=== PATIENT | female | born 1990 | race Caucasian/White ===

== ENCOUNTER 2018-11-11 05:00 | Inpatient (IN) ==
[2018-11-11] MEDS ORDERED: CLINDAMYCIN 900 MG/D5W 900 MG/50 ML IVPB IV ONE (05:12)
[2018-11-11] MEDS ORDERED: BICITRA PO ONE (05:30)
[2018-11-11] MEDS: LR 1,000 ML IV SCH ×2 (06:00→06:45)
[2018-11-11 06:24] LABS: BASO# 0.01 X1000 (0.0-0.2); BASO% 0.1 % (0.0-0.8); EOS# 0.04 X1000 (0.0-0.7); EOS% 0.6 % (0.0-10.0); HEMOGLOBIN 9.5 g/dL (12.0-16.0); IMM GRAN# 0.02 X1000 (0.0-0.04); IMM GRAN% 0.3 % (0.0-0.5); LYMPH% 20.9 % (20.5-51.1); MCH 24.4 PG (27-31); MCHC 31.7 g/dL (33-37); MCV 76.9 FL (81-99); MONO# 0.55 X1000 (0.11-0.59); MONO% 7.7 % (1.7-9.3); MPV 11.6 FL (7.4-10.4); NEUT# 5.06 X1000 (1.4-6.5); NEUT% 70.4 % (42.2-75.2); PLT 188 X1000 (130-400); RDW 14.9 % (11.5-14.5); WBC 7.18 X1000 (4.8-10.8)
[2018-11-11 06:24] LABS: URINE SOURCE VOIDED
[2018-11-11 06:28] LABS: COLOR YELLOW
[2018-11-11 06:29] LABS: BILIRUBIN URINE NEGATIVE (NEGATIVE); GLUCOSE URINE NEGATIVE (NEGATIVE); KETONE URINE TRACE mg/dL (NEGATIVE)
[2018-11-11 06:36] LABS: BLOOD URINE NEGATIVE (NEGATIVE); LEUKOCYTES URINE TRACE (NEGATIVE); NITRITE URINE NEGATIVE (NEGATIVE); PH URINE 6.5; PROTEIN URINE 1+(30 mg/dL) mg/dL (NEGATIVE); UROBILINOGEN URINE 1 mg/dL
[2018-11-11 06:37] LABS: CLARITY SL. CLOUDY (CLEAR)
[2018-11-11 06:47] LABS: UR AMPHETAMINES QUAL NONE DETECTED (NONE DETECT); UR BARBITUATES QUAL NONE DETECTED (NONE DETECT); UR BENZODIAZEPIN QUAL NONE DETECTED (NONE DETECT); UR CANNABINOIDS QUAL NONE DETECTED (NONE DETECT); UR COCAINE QUAL NONE DETECTED (NONE DETECT); UR METHADONE QUAL NONE DETECTED (NONE DETECT); UR METHAMPHETAMINE QUAL NONE DETECTED (NONE DETECT); UR OPIATES QUAL NONE DETECTED (NONE DETECT); UR OXYCODONE QUAL NONE DETECTED (NONE DETECT); UR PCP QUAL NONE DETECTED (NONE DETECT); UR PROPOXYPHENE QUAL NONE DETECTED (NONE DETECT); UR TCA QUAL NONE DETECTED (NONE DETECT)
[2018-11-11] MEDS ORDERED: TORADOL ONE (06:53)
[2018-11-11] MEDS ORDERED: EPHEDRINE ONE (06:54)
[2018-11-11] MEDS ORDERED: FENTANYL ONE (07:05)
[2018-11-11] MEDS: TORADOL IV SCH ×3 (08:00→21:24)
[2018-11-11] MEDS ORDERED: HYDROXYZINE IM PRN (08:15)
[2018-11-11] MEDS ORDERED: M-M-R II VACCINE SUBQ ONE (08:15)
[2018-11-11] MEDS ORDERED: DEMEROL PO PRN ×2 (08:15)
[2018-11-11] MEDS ORDERED: PITOCIN 20 UNITS/NS 20 UNITS/1,000 ML IV.SOLN IV ONE (08:15)
[2018-11-11] MEDS ORDERED: DEMEROL IM PRN (08:15)
[2018-11-11] MEDS ORDERED: PHENERGAN IM PRN (08:15)
[2018-11-11] MEDS ORDERED: DULCOLAX PR PRN (08:15)
[2018-11-11] MEDS ORDERED: AMBIEN PO PRN (08:15)
[2018-11-11] MEDS ORDERED: BOOSTRIX VACCINE IM ONE (08:15)
[2018-11-11] MEDS ORDERED: NORCO-5 PO PRN (08:15)
[2018-11-11] MEDS ORDERED: PITOCIN IM PRN (08:15)
[2018-11-11] MEDS ORDERED: PITOCIN 10 UNITS/NS 1,000 ML IV SCH (08:15)
[2018-11-11] MEDS ORDERED: ATARAX PO PRN (08:15)
[2018-11-11] MEDS ORDERED: MORPHINE IV PRN (08:36)
[2018-11-11] MEDS ORDERED: MORPHINE PCA IV PRN (08:45)
[2018-11-11] MEDS ORDERED: NARCAN IV PRN (08:45)
[2018-11-11] MEDS ORDERED: BENADRYL IV PRN (08:45)
[2018-11-11] MEDS ORDERED: ZOFRAN IV PRN (08:45)
--- NOTE | 2018-11-11 13:06 | OPERATIVE NOTE ---
PROCEDURE DATE : 11/11/2018 PREOPERATIVE DIAGNOSIS: Intrauterine at 39 and 2/7 weeks with history of section. Also the patient desires permanent sterilization. POSTOPERATIVE DIAGNOSES: 1. Intrauterine at 39 and 2/7 weeks with history of section. Also the patient desires permanent sterilization. 2. Operative delivery of a male , 8 pounds 13 ounces, with Apgars of 9 and 10 at 0715 on 11/11/2018. PROCEDURES PERFORMED: 1. Repeat low transverse section. 2. Bilateral tubal ligation. SURGEON: Dr. Rodriguez MANAGER FILM: Dr. Grimes ANESTHESIA: Spinal, Dr. Benitez. FINDINGS: Normal appearing uterus, tubes and ovaries. COMPLICATIONS: None. ESTIMATED BLOOD LOSS: 700 mL. SPECIMENS REMOVED: Right and left fallopian tube segments. DRAINS: Pitt to straight drain. COUNTS: All counts were correct x3. INDICATION: The patient is a 28-year-old white female, G4, P2, with history of prior section at 39 and 2/7 weeks, who expresses desire for elective repeat section as well as tubal ligation. The patient was counseled about risks of surgery including bleeding, infection, bowel or bladder injury. The patient was counseled about the permanence of the procedure, failure rate of 2 to 4 per 1000, as well as the availability of reversible alternatives such as IUD, control pills, patches, etc. DESCRIPTION OF PROCEDURE: The patient was taken to Labor and Delivery OR, spinal anesthesia was employed. The patient was placed in supine position with roll under right hip. She was then prepped and draped in sterile fashion, placement of Pitt catheter. Adequate anesthesia was noted using Allis clamps on the skin. Then a Pfannenstiel skin incision was made in the lower abdomen using a scalpel. This was taken down sharply to the fascial layer. A small andrade was made in the rectus fascia. Fascial incision was extended bilaterally by curved Echeverria scissors. Then blunt and sharp dissection of the rectus fascia was accomplished in the superior and inferior aspects of the rectus fascia. Rectus muscles were then divided in the midline. The peritoneal layer was entered bluntly. The peritoneal incision was extended superiorly and inferiorly with care taken to avoid the bladder. The bladder reflection was difficult due to extensive scarring. A transverse incision was made on the lower uterine segment using the scalpel. This was then extended bilaterally by surgeon's fingers. Clear fluid was noted upon entry in the hysterotomy site, and then the head was elevated toward the hysterotomy incision and with gentle fundal pressure, the head was delivered atraumatically, bulb suctioned the nose and mouth, and the rest of the body was delivered traumatically with gentle fundal pressure. The cord was clamped twice and cut. was handed to the nursery nurse in attendance for delivery. Cord blood samples obtained at this time. The placenta was then manually extracted. The uterus was exteriorized. A wet lap was placed around the uterus. A dry lap was used to curet the uterine cavity of clots and debris. Then the uterine incision was closed with 0 chromic in running locking fashion x1. An area of oozing on the left corner was made hemostatic with [id number] stitches of 0 chromic. At this point in time, attention was turned to the fallopian tubes. The right fallopian tube was grasped near the isthmus. A small hole was made in the mesosalpinx using electrocautery, and 0 plain suture was then used to ligate a portion of the fallopian tube which was excised using Metzenbaum scissors and then handed off to be placed in a specimen container. Electrocautery was used to obtain hemostasis as well as touch the open ends of the ostia. The left fallopian tube was then gasped near the isthmus. A small hole was made in the mesosalpinx using electrocautery, and then 0 plain suture was used to ligate a portion of the fallopian tube. This ligated portion was then excised using Metzenbaum scissors and handed off to be placed in a specimen container. Electrocautery was then used to obtain hemostasis as well as to touch the open ends of the ostia. This was handed off to be placed in a specimen container as well. The posterior cul-de-sac was then irrigated copiously. Uterus was replaced back into the abdominal cavity. Pericolic gutters were cleansed using moist lap sponges. The peritoneal layer was then closed using 2-0 chromic in a running fashion x1. The fascial layer was then closed using 0 PDS in a running fashion x1. The subcutaneous layer was irrigated copiously. Electrocautery was used to obtain hemostasis and then 3-0 plain suture was used in a running fashion to reapproximate the subcutaneous tissue. Then the skin was reapproximated using katie. The patient tolerated the procedure well and was taken to the recovery room in stable condition. All counts were correct x3. cc: Amador Rodriguez III, MD
[2018-11-11] MEDS: MYLICON PO PRN (16:27)
[2018-11-11] MEDS: NS IV SCH (16:33)
[2018-11-11] MEDS: PITOCIN IV SCH (16:33)
[2018-11-11] MEDS: MYLICON PO SCH ×4 (16:35→21:26)
[2018-11-11] MEDS ORDERED: PERICOLACE PO SCH (21:00)
[2018-11-12] MEDS: PITOCIN IV SCH (00:47)
[2018-11-12] MEDS: NS IV SCH (00:47)
[2018-11-12] MEDS: TORADOL IV SCH (02:54)
--- NOTE | 2018-11-12 06:06 | OB/GYN PROGRESS NOTE ---
Progress Note OB - . OB Progress Note: Vital Signs - 24 hr 11/11/18 08:02 11/11/18 08:12 11/11/18 08:15 Temperature 96.0 F L 96 F L Pulse Rate 65 55 L 51 L Respiratory Rate 18 18 18 Blood Pressure 90/51 106/60 Blood Pressure [Right Arm] 90/51 125/63 O2 Sat by Pulse Oximetry 99 98 100 11/11/18 08:22 11/11/18 08:32 11/11/18 08:42 Temperature Pulse Rate 51 L 50 L 56 L Respiratory Rate 18 18 18 Blood Pressure Blood Pressure [Right Arm] 106/59 106/60 103/57 O2 Sat by Pulse Oximetry 100 100 100 11/11/18 08:52 11/11/18 09:02 11/11/18 12:00 Temperature 96.3 F L Pulse Rate 60 65 67 Respiratory Rate 18 18 18 Blood Pressure 100/61 108/58 Blood Pressure [Right Arm] 108/65 100/61 O2 Sat by Pulse Oximetry 100 100 100 11/11/18 14:45 11/11/18 19:38 11/11/18 23:40 Temperature 96.4 F L 97.2 F L Pulse Rate 60 70 65 Respiratory Rate 16 18 18 Blood Pressure 108/57 97/53 Blood Pressure [Right Arm] O2 Sat by Pulse Oximetry 99 100 98 11/12/18 03:03 Temperature 97.3 F L Pulse Rate 80 Respiratory Rate 20 Blood Pressure 114/69 Blood Pressure [Right Arm] O2 Sat by Pulse Oximetry 98 Laboratory Results - last 24 hr 11/11/18 11/11/18 11/11/18 05:10 05:10 06:00 WBC RBC Hgb Hct MCV MCH MCHC RDW Std Deviation Plt Count MPV Immature Gran % (Auto) Neut % (Auto) Lymph % (Auto) [place] % (Auto) Eos % (Auto) Baso % (Auto) Immature Gran # (Auto) Neut # (Auto) Lymph # (Auto) [place] # (Auto) Eos # (Auto) Baso # (Auto) Urine Source VOIDED Urine Color YELLOW Urine Clarity SL. CLOUDY A Urine pH 6.5 Ur Specific M[place]od 1.020 Urine Protein 1+(30 mg/dL) A Urine Ketones TRACE Urine Blood NEGATIVE Urine Nitrite NEGATIVE Urine Bilirubin NEGATIVE Urine Urobilinogen 1 Urine WBC TRACE A Urine Glucose NEGATIVE Urine Opiates Screen NONE DETECTED Ur Oxycodone Screen NONE DETECTED Urine Methadone Screen NONE DETECTED U Propoxyphene Qual NONE DETECTED Ur Barbituates Screen NONE DETECTED Ur Tricyclics Screen NONE DETECTED Ur Phencyclidine Scrn NONE DETECTED Ur Amphetamines Screen NONE DETECTED U Methamphetamines Scrn NONE DETECTED U Benzodiazepines Scrn NONE DETECTED Urine Cocaine Screen NONE DETECTED U Cannabinoids Screen NONE DETECTED RPR NON-REACTIVE Blood Type Antibody Screen 11/11/18 11/11/18 06:00 06:00 WBC 7.18 RBC 3.90 L Hgb 9.5 L Hct 30.0 L MCV 76.9 L MCH 24.4 L MCHC 31.7 L RDW Std Deviation 14.9 H Plt Count 188 MPV 11.6 H Immature Gran % (Auto) 0.3 Neut % (Auto) 70.4 Lymph % (Auto) 20.9 [place] % (Auto) 7.7 Eos % (Auto) 0.6 Baso % (Auto) 0.1 Immature Gran # (Auto) 0.02 Neut # (Auto) 5.06 Lymph # (Auto) 1.50 [place] # (Auto) 0.55 Eos # (Auto) 0.04 Baso # (Auto) 0.01 Urine Source Urine Color Urine Clarity Urine pH Ur Specific [place] Urine Protein Urine Ketones Urine Blood Urine Nitrite Urine Bilirubin Urine Urobilinogen Urine WBC Urine Glucose Urine Opiates Screen Ur Oxycodone Screen Urine Methadone Screen U Propoxyphene Qual Ur Barbituates Screen Ur Tricyclics Screen Ur Phencyclidine Scrn Ur Amphetamines Screen U Methamphetamines Scrn U Benzodiazepines Scrn Urine Cocaine Screen U Cannabinoids Screen RPR Blood Type A POSITIVE Antibody Screen NEGATIVE Pt doing well. pain well controlled with meds no N/V tolerating po +flatus no BM yet ambriz still in place about 1000cc in the bag O: VSSAF Gen: AAOx3 NAD CV: RRR no g/m/r Lungs: CTAB no w/r/r Abd: +BS soft emmie tender incision with bandage over it no strikethrough Ext: SCDs in place Labs CBC pending A: POD#1 s/p RLTCS/BTL obesity P: Cont postop mgmt D/C ambriz Regular diet Ambulate TID in halls Pt may shower
[2018-11-12] MEDS: MYLICON PO PRN (06:13)
[2018-11-12 06:41] LABS: BASO# 0.01 X1000 (0.0-0.2); BASO% 0.1 % (0.0-0.8); EOS# 0.05 X1000 (0.0-0.7); EOS% 0.6 % (0.0-10.0); HEMATOCRIT 26.4 % (37.0-47.0); HEMOGLOBIN 8.2 g/dL (12.0-16.0); IMM GRAN# 0.02 X1000 (0.0-0.04); IMM GRAN% 0.2 % (0.0-0.5); LYMPH# 1.03 X1000 (1.2-3.4); LYMPH% 11.8 % (20.5-51.1); MCH 24.3 PG (27-31); MCHC 31.1 g/dL (33-37); MCV 78.3 FL (81-99); MONO# 0.45 X1000 (0.11-0.59); MONO% 5.2 % (1.7-9.3); MPV 11.2 FL (7.4-10.4); NEUT# 7.16 X1000 (1.4-6.5); NEUT% 82.1 % (42.2-75.2); PLT 147 X1000 (130-400); RBC 3.37 XMIL (4.2-5.4); WBC 8.72 X1000 (4.8-10.8)
[2018-11-12] MEDS ORDERED: LR 1,000 ML IV SCH (08:15)
[2018-11-12] MEDS: MOTRIN PO PRN ×2 (10:21→18:04)
[2018-11-12] MEDS: MYLICON PO SCH ×4 (10:22→19:00)
[2018-11-12] MEDS: NORCO-10 PO PRN ×3 (10:22→20:39)
[2018-11-12] MEDS ORDERED: NEOSPORIN OINTMENT PACKET TOP PRN (11:44)
[2018-11-13] MEDS: MOTRIN PO PRN ×2 (08:17→17:45)
[2018-11-13] MEDS: MYLICON PO SCH ×4 (08:18→21:26)
[2018-11-13] MEDS: PERCOCET-10 PO PRN ×4 (08:21→21:26)
[2018-11-14] MEDS: MOTRIN PO PRN (03:48)
[2018-11-14] MEDS: PERCOCET-10 PO PRN (07:40)
[2018-11-14] MEDS: MYLICON PO SCH (07:40)
--- NOTE | 2018-11-14 07:51 | OB/GYN PROGRESS NOTE ---
Progress Note OB - . OB Progress Note: Vital Signs - 24 hr 11/13/18 07:55 11/13/18 11:55 11/13/18 16:20 Temperature 97.4 F L 96.5 F L 97.3 F L Pulse Rate 73 95 H 97 H Respiratory Rate 18 16 16 Blood Pressure 133/68 115/67 131/70 O2 Sat by Pulse Oximetry 100 99 100 11/13/18 20:00 11/13/18 21:30 11/14/18 03:50 Temperature 97.6 F 97.1 F L Pulse Rate 97 H 91 H 97 H Respiratory Rate 16 18 18 Blood Pressure 126/62 130/67 O2 Sat by Pulse Oximetry POD#3 s/p LTCD. Pt doing well and wants to go home. Decreased lochia. Michelle reg diet. Ambulating. Voiding w/o dif.No SOB, CP or leg pain. VSS AF Gen - pt in no apparent distress A&O x 3 ABD - soft, NT, ND, FF , Wound - c/d/i/ Extreme - no CCE A/p POD #3 s/p LTCD D/c home. F/u Tues for staple removal
[2018-11-14 08:14] VITALS: BP 130/74
== END 2018-11-14 12:00 | disposition home or self-care (01) | DRG 785 ==
LOC: P.LD 05:00
PROVIDERS: ADMIT Obstetrics & Gynecology; ATTEND Obstetrics & Gynecology
CPT/HCPCS: 59025; 80104; 80301; 80305; 81003; 85025; 86592; 86850; 86900; 86901; 94761; 94799; A9270; G0431; G0434; G0477; J1885; J2270; J2275; J2590; J3010; J7030; J7120; Q9974